=== PATIENT | female | born 1975 | race Caucasian/White ===

== ENCOUNTER 2023-03-24 18:59 | Emergency (ER) | payer OTHER ==
[~2023-03-24] VITALS: Ht 160 cm; Wt 71.0 kg
[2023-03-24 19:18] VITALS: O2SAT 96
[2023-03-24 19:54] LABS: CLARITY URINE TURBID (CLEAR); COLOR URINE DARK YELLOW (YELLOW); GLUCOSE URINE NEGATIVE (NEGATIVE); KETONES URINE TRACE (NEGATIVE); LEUKOCYTE ESTERASE URINE TRACE (NEGATIVE); NITRITE URINE NEGATIVE (NEGATIVE); OCCULT BLOOD URINE 1+ (NEGATIVE); PH URINE 5.5 (4.5-8.0); PROTEIN URINE 1+ (NEGATIVE); SPECIFIC GRAVITY URINE 1.034 (1.005-1.030)
[2023-03-24 19:58] LABS: BASOPHILS % 0.2 % (0.0-2.0); EOSINOPHILS % 0.1 % (0.0-5.0); LYMPHOCYTES % 9.2 % (20.0-50.0); MEAN CORPUSCULAR HEMOGLOBIN 28.1 pg (28.0-32.0); MEAN CORPUSCULAR HGB CONC 32.7 g/dL (31.0-37.0); MEAN CORPUSCULAR VOLUME 86.1 fL (81.0-99.0); MEAN PLATELET VOLUME 9.9 fl (7.4-10.4); MONOCYTES % 6.2 % (2.0-8.0); NEUTROPHILS % 84.3 % (40.0-76.0); PLATELET 336 x1000/uL (130-400); RED BLOOD CELL COUNT 5.35 mill/uL (4.2-5.4); WHITE BLOOD COUNT 8.9 x1000/uL (4.5-11.0)
[2023-03-24 20:12] LABS: ALANINE AMINOTRANSFERASE 23 IU/L (10-49); ALBUMIN 4.9 g/dL (3.2-4.8); ASPARTATE AMINOTRANSFERASE 21 IU/L (<34); BILIRUBIN TOTAL 0.5 mg/dL (0.1-1.0); CALCIUM 10.5 mg/dL (8.7-10.4); CARBON DIOXIDE 27 mEq/L (21-32); CHLORIDE 103 mEq/L (98-107); CREATININE 0.8 mg/dL (0.6-1.0); GLUCOSE 107 mg/dL (70-105); POTASSIUM 4.7 mEq/L (3.5-5.1); PROTEIN TOTAL 8.1 g/dL (6.0-8.3); SODIUM 139 mEq/L (136-145); UREA NITROGEN BLOOD 10 mg/dL (9-23)
[2023-03-24 20:14] LABS: SQUAMOUS EPITHELIAL CELL URINE 3+ /lpf (RARE/1+)
[2023-03-24 20:15] LABS: BACTERIA URINE TRACE; HYALINE CASTS URINE 0-5 /lpf; MUCUS URINE 1+ /lpf (< = 2+)
[2023-03-24 20:27] LABS: TROPONIN I HIGH SENSITIVITY < 4 ng/L (3.0-34)
[2023-03-24] MEDS ORDERED: KETOROLAC 30MG/ML VIAL IV STA (21:50)
[2023-03-24] MEDS ORDERED: ONDANSETRON HCL 4MG/2ML INJ IV STA (21:50)
[2023-03-24] MEDS ORDERED: CEPHALEXIN 250MG CAPSULE PO ONE (22:00)
[2023-03-24] MEDS ORDERED: SODIUM CHLORIDE 0.9% 1,000 ML IV ONE (22:00)
[2023-03-25] MEDS ORDERED: ONDANSETRON HCL 4MG/2ML INJ IV NR (01:30)
[2023-03-25] MEDS ORDERED: CEPHALEXIN 250MG CAPSULE PO NR (01:30)
[2023-03-25] MEDS ORDERED: KETOROLAC 30MG/ML VIAL IV NR (01:30)
[2023-03-25] MEDS ORDERED: FAMO-135 MT (03:10)
[2023-03-25] MEDS ORDERED: ACET-2708 MT (03:10)
[2023-03-25] MEDS ORDERED: CEPH500C2 MT (03:10)
[2023-03-25 07:44] VITALS: TEMP 98.9
[2023-03-25 09:33] VITALS: BP 109/80; PULSE 67; RESP 16
== END 2023-03-25 09:37 | disposition home or self-care (01) ==
LOC: ER 18:59
DX: R10.9 Unspecified abdominal pain (principal); R11.2 Nausea with vomiting, unspecified; N39.0 Urinary tract infection, site not specified; I10 Essential (primary) hypertension
CPT/HCPCS: 80053; 81003; 81025; 83690; 85025; 84484; 36415; 93005; 99285; 74176; 96361; 96374; 96375; J7030; J1885; J2405; Z7610 ×2

== ENCOUNTER 2023-11-16 15:05 | Emergency (ER) | payer OTHER ==
[~2023-11-16] VITALS: Ht 165.1 cm; Wt 84.0 kg
[~2023-11-16 15:05] MED LIST: ACET-2708 MT; CEPH500C2 MT; FAMO-135 MT
[2023-11-16 15:15] VITALS: O2SAT 95
[2023-11-16 15:37] LABS: BASOPHILS % 0.8 % (0.0-2.0); EOSINOPHILS % 0.3 % (0.0-5.0); HEMATOCRIT. 42.8 % (36.0-48.0); HEMOGLOBIN. 14.5 g/dL (12.0-16.0); LYMPHOCYTES % 30.1 % (20.0-50.0); MEAN CORPUSCULAR HEMOGLOBIN 29.4 pg (28.0-32.0); MEAN CORPUSCULAR HGB CONC 33.9 g/dL (31.0-37.0); MEAN CORPUSCULAR VOLUME 86.8 fL (81.0-99.0); MEAN PLATELET VOLUME 9.2 fl (7.4-10.4); MONOCYTES % 6.3 % (2.0-8.0); NEUTROPHILS % 62.5 % (40.0-76.0); PLATELET 339 x1000/uL (130-400); RED BLOOD CELL COUNT 4.93 mill/uL (4.2-5.4); RED CELL DISTRIBUTION WIDTH 14.1 % (11.6-14.6); WHITE BLOOD COUNT 8.7 x1000/uL (4.5-11.0)
[2023-11-16 15:46] LABS: CHLORIDE 106 mEq/L (98-107); POTASSIUM 3.7 mEq/L (3.5-5.1); SODIUM 140 mEq/L (136-145)
[2023-11-16 15:47] LABS: CALCIUM 10.4 mg/dL (8.7-10.4); CARBON DIOXIDE 24 mEq/L (21-32)
[2023-11-16 15:52] LABS: CREATININE 0.8 mg/dL (0.6-1.0); GLUCOSE 82 mg/dL (70-105); UREA NITROGEN BLOOD 15 mg/dL (9-23)
[2023-11-16 15:55] LABS: TROPONIN I HIGH SENSITIVITY < 4 ng/L (3.0-34)
[2023-11-16] MEDS: HYDROCODONE/ACETAMINOPHEN 5/325MG TABLET PO ONE (16:53)
[2023-11-16] MEDS ORDERED: MELO-104 MT (17:32)
[2023-11-16 17:54] VITALS: TEMP 98.2
[2023-11-16 18:01] VITALS: BP 124/82; PULSE 92; RESP 18
[2023-11-16] MEDS: KETOROLAC 30MG/ML VIAL IM ONE (18:01)
[2023-11-16 18:14] LABS: CLARITY URINE CLEAR (CLEAR); COLOR URINE YELLOW (YELLOW); GLUCOSE URINE NEGATIVE (NEGATIVE); KETONES URINE TRACE (NEGATIVE); LEUKOCYTE ESTERASE URINE NEGATIVE (NEGATIVE); NITRITE URINE NEGATIVE (NEGATIVE); OCCULT BLOOD URINE NEGATIVE (NEGATIVE); PH URINE 5.5 (4.5-8.0); PROTEIN URINE NEGATIVE (NEGATIVE); SPECIFIC GRAVITY URINE 1.025 (1.005-1.030); UROBILINOGEN URINE 0.2 E.U./dL (0.2-1.0)
== END 2023-11-16 18:05 | disposition home or self-care (01) ==
LOC: ER 15:05
DX: G90.50 Complex regional pain syndrome I, unspecified (principal); I49.9 Cardiac arrhythmia, unspecified
CPT/HCPCS: 99284; 80048; 81003; 81025; 85025; 84484; 36415; 93005; 96372; J1885

== ENCOUNTER 2024-02-07 18:27 | Emergency (ER) | payer OTHER ==
[~2024-02-07] VITALS: Ht 160 cm; Wt 72.5 kg
[~2024-02-07 18:27] MED LIST changes: +MELO-104 MT
[2024-02-07 18:48] VITALS: O2SAT 97
[2024-02-07] MEDS ORDERED: NAPR-1176 MT (22:29)
[2024-02-07] MEDS ORDERED: LIDO700A15 TP (22:29)
[2024-02-07] MEDS: KETOROLAC 15MG/ML VIAL IM ONE (22:35)
[2024-02-07 22:40] VITALS: BP 135/66; PULSE 78; RESP 14; TEMP 36.66960; O2SAT 97
== END 2024-02-07 22:48 | disposition home or self-care (01) ==
LOC: ER 18:27
DX: G89.29 Other chronic pain (principal); I10 Essential (primary) hypertension; Z88.1 Allergy status to other antibiotic agents; Z88.2 Allergy status to sulfonamides; Z79.899 Other long term (current) drug therapy
CPT/HCPCS: 99283; 81025; 96372; J1885

== ENCOUNTER 2024-06-08 16:15 | Emergency (ER) | payer OTHER ==
[~2024-06-08] VITALS: Ht 160 cm; Wt 72.5 kg
[~2024-06-08 16:15] MED LIST changes: +LIDO700A15 TP; +NAPR-1176 MT
[2024-06-08 16:19] VITALS: O2SAT 99
[2024-06-08 16:36] VITALS: TEMP 36.9; O2SAT 99
[2024-06-08] MEDS ORDERED: ACET-2708 MT (17:44)
[2024-06-08 17:53] VITALS: BP 141/103; PULSE 81; RESP 16
[2024-06-08] MEDS: KETOROLAC 30MG/ML VIAL IM ONE (17:53)
== END 2024-06-08 18:15 | disposition home or self-care (01) ==
LOC: ER 16:15
DX: G90.50 Complex regional pain syndrome I, unspecified (principal); I10 Essential (primary) hypertension; Z98.890 Other specified postprocedural states; Z90.721 Acquired absence of ovaries, unilateral; Z88.2 Allergy status to sulfonamides; Z88.1 Allergy status to other antibiotic agents; Z79.899 Other long term (current) drug therapy
CPT/HCPCS: 99283; 96372; J1885

== ENCOUNTER 2024-09-27 13:18 | Emergency (ER) | payer OTHER ==
[~2024-09-27] VITALS: Ht 160 cm; Wt 72.6 kg
[~2024-09-27 13:18] MED LIST changes: +LIDO-53 TP; -LIDO700A15 TP
[2024-09-27 13:46] VITALS: O2SAT 98
[2024-09-27] MEDS: KETOROLAC 30MG/ML VIAL IM ONE (16:06)
[2024-09-27] MEDS ORDERED: KETO10TA2 MT (17:12)
[2024-09-27 17:23] VITALS: BP 116/68; PULSE 84; RESP 18; TEMP 36.7; O2SAT 98
== END 2024-09-27 17:24 | disposition home or self-care (01) ==
LOC: ER 13:18
DX: G56.41 Causalgia of right upper limb (principal); I10 Essential (primary) hypertension; Z88.1 Allergy status to other antibiotic agents; Z88.2 Allergy status to sulfonamides; Z79.899 Other long term (current) drug therapy; Z98.890 Other specified postprocedural states
CPT/HCPCS: 99283; 96372; J1885

== ENCOUNTER 2024-12-31 15:32 | Emergency (ER) | payer OTHER ==
[~2024-12-31] VITALS: Ht 160 cm; Wt 67.0 kg
[~2024-12-31 15:32] MED LIST changes: +KETO10TA2 MT
[2024-12-31 15:45] VITALS: O2SAT 97
[2024-12-31] MEDS: LORAZEPAM 1MG TABLET PO ONE (23:13)
[2024-12-31] MEDS: KETOROLAC 30MG/ML VIAL IM ONE (23:14)
[2025-01-01 00:29] VITALS: BP 136/90; PULSE 90; RESP 17; TEMP 36.8; O2SAT 96
== END 2025-01-01 00:30 | disposition home or self-care (01) ==
LOC: ER 15:39
DX: K14.8 Other diseases of tongue (principal); I10 Essential (primary) hypertension; Z79.1 Long term (current) use of non-steroidal anti-inflammatories (NSAID); Z79.899 Other long term (current) drug therapy; Z98.890 Other specified postprocedural states; Z88.1 Allergy status to other antibiotic agents; Z88.2 Allergy status to sulfonamides
CPT/HCPCS: 99283; 96372; J1885